=== PATIENT | male | born 2000 | race Caucasian/White ===

== ENCOUNTER 2024-01-10 02:39 | Emergency (ER) | payer BC ==
[~2024-01-10] VITALS: Ht 180.3 cm; Wt 109.1 kg
[2024-01-10 02:46] VITALS: TEMP 97.7
[2024-01-10 03:07] LABS: URINE APPEARANCE CLEAR (CLEAR/HAZY); URINE BLOOD NEGATIVE (NEGATIVE); URINE COLOR YELLOW (YELLOW); URINE GLUCOSE NEGATIVE (NEGATIVE); URINE KETONE TRACE (NEGATIVE); URINE NITRATE NEGATIVE (NEGATIVE); URINE PROTEIN(semi-quant) TRACE (NEGATIVE)
[2024-01-10] MEDS ORDERED: Ondansetron 4 MG/2 ML VIAL IV ONE (03:15)
[2024-01-10] MEDS ORDERED: Ketorolac 30 MG/ML VIAL IV ONE (03:15)
[2024-01-10] MEDS ORDERED: Morphine 4 MG/ML VIAL IV ONE ×3 (03:15→05:00)
[2024-01-10 03:41] LABS: COLLECTION METHOD CLEAN CATCH
[2024-01-10] MEDS ORDERED: NAPROSYN500 MG PO (03:44)
[2024-01-10] MEDS ORDERED: ROXICODONE 55 MG/TAB PO (03:44)
[2024-01-10] MEDS ORDERED: ZOFRAN ODT4 MG PO (03:44)
[2024-01-10 05:50] VITALS: BP 146/91; PULSE 83
== END 2024-01-10 05:50 | disposition home or self-care (01) ==
LOC: COL.ER 02:39
PROVIDERS: Emergency Medicine
DX: N45.1 Epididymitis (principal)
CPT/HCPCS: J1885; J2270; J2405

== ENCOUNTER → 2024-08-02 | Outpatient (CLI) | payer OTHER ==
[~2024-08-02] MED LIST: NAPROSYN500 MG PO; ROXICODONE 55 MG/TAB PO; ZOFRAN ODT4 MG PO
== END ==
LOC: COL.RAD 11:17
DX: N50.1 Vascular disorders of male genital organs (principal)